=== PATIENT | male | born 1960 | race Caucasian/White ===

== ENCOUNTER 2018-01-26 11:20 | Day surgery (SDC) | payer OTHER ==
[~2018-01-26 11:20] MED LIST: CEFAZOLIN 2 GM/50 ML (PMX) 50 ML IVPB; DEXAMETHASONE 1 MG TAB PO; GABAPENTIN 300 MG CAP PO; LACTATED RINGER'S 1,000 ML IV*; TRANEXAMIC ACID 1,000 MG in DEXTROSE 5% 100 ML IVPB
[2018-01-26] MEDS ORDERED: MIDAZOLAM 1 MG/ML 2 ML INJ (12:35)
[2018-01-26] MEDS ORDERED: ROPIVACAINE 0.5 % 30 ML VIAL (12:35)
[2018-01-26] MEDS ORDERED: PROPOFOL 20 ML (12:35)
[2018-01-26] MEDS ORDERED: ROCURONIUM 50 MG INJ (12:35)
[2018-01-26] MEDS ORDERED: CEFAZOLIN 1 GM INJ (12:35)
[2018-01-26] MEDS ORDERED: HYDROmorphONE 1 MG/5 ML IV SYRINGE IV ×3 (13:00)
[2018-01-26] MEDS ORDERED: DIPHENHYDRAMINE 50 MG INJ IV (13:00)
[2018-01-26] MEDS ORDERED: EPHEDrine SULFATE 50 MG/5 ML SYG IV (13:00)
[2018-01-26] MEDS ORDERED: OXYCODONE/ACETAMINOPHEN (5/325) TAB PO ×2 (13:00)
[2018-01-26] MEDS ORDERED: FENTAnyl 50 MCG/ML VIAL IV ×3 (13:00)
[2018-01-26] MEDS ORDERED: hydrALAzine 20 MG INJ IV (13:00)
[2018-01-26] MEDS ORDERED: ONDANSETRON 4 MG INJ IV (13:00)
[2018-01-26] MEDS ORDERED: MEPERIDINE 25 MG INJ IV (13:00)
[2018-01-26] MEDS ORDERED: METOCLOPRAMIDE 10 MG INJ IV (13:00)
[2018-01-26] MEDS ORDERED: LABETALOL HCL 20MG INJ IV (13:00)
[2018-01-26] MEDS ORDERED: KETOROLAC 30 MG INJ (14:38)
[2018-01-26] MEDS ORDERED: METOCLOPRAMIDE 10 MG INJ (14:38)
[2018-01-26] MEDS ORDERED: DEXAMETHASONE 4 MG/ML 1 ML INJ (14:38)
[2018-01-26] MEDS ORDERED: SUGAMMADEX SODIUM 200 MG/2 ML VIAL IV (14:38)
[2018-01-26] MEDS ORDERED: ONDANSETRON 4 MG INJ (14:38)
[2018-01-26] MEDS ORDERED: ACETAMINOPHEN 1000MG/100ML IV 100 ML (14:40)
== END 2018-01-26 17:10 | disposition home or self-care (01) ==
LOC: SUR 11:20 → SDS 11:20 → SUR 17:10
DX: M19.011 Primary osteoarthritis, right shoulder (principal); M25.811 Other specified joint disorders, right shoulder; M75.101 Unspecified rotator cuff tear or rupture of right shoulder, not specified as traumatic; S43.491D Other sprain of right shoulder joint, subsequent encounter; X58.XXXD Exposure to other specified factors, subsequent encounter
CPT/HCPCS: 29824; 82962